=== PATIENT | female | born 1975 | race Caucasian/White ===

== ENCOUNTER 2017-05-18 10:23 | Outpatient (CLI) | payer BC | END 2017-05-18 10:24 | disposition home or self-care (01) | LOC: CTENTCT 10:23 | PROVIDERS: ATTEND Otolaryngology Plastic Surgery within the Head & Neck | DX: J01.91 Acute recurrent sinusitis, unspecified (principal) | CPT/HCPCS: 70486 ==

== ENCOUNTER 2017-08-07 13:53 | Outpatient (CLI) | payer BC | END 2017-08-07 13:54 | disposition home or self-care (01) | LOC: CTENTCT 13:53 | PROVIDERS: ATTEND Otolaryngology Plastic Surgery within the Head & Neck | DX: J32.8 Other chronic sinusitis (principal) | CPT/HCPCS: 70486 ==

== ENCOUNTER 2017-08-16 07:00 | Day surgery (SDC) | payer BC ==
[2017-08-15 12:53] VITALS: BMI 31.6
[2017-08-16] MEDS ORDERED: Oxymetazoline HCl 0.05% ( 15 ML ) ONE ×2 (08:05→09:14)
[2017-08-16 08:06] LABS: Hematocrit 44.4 % (36.0-47.0)
[2017-08-16] MEDS ORDERED: Fentanyl 100 MCG/2 ML VIAL ONE ×2 (08:58→10:09)
[2017-08-16] MEDS ORDERED: Midazolam HCl 2 mg/2 ml Vial ONE (08:58)
[2017-08-16] MEDS ORDERED: Lidocaine 1% w/Epinephrine 1:200K 30 ML VIAL ONE (09:14)
[2017-08-16] MEDS ORDERED: HYDROcodone/Acetaminophen 5/325 mg Tablet ONE (11:26)
[2017-08-16] MEDS ORDERED: Glycopyrrolate 0.2 MG/ML 5 ML SYRINGE ONE (14:35)
[2017-08-16] MEDS ORDERED: Dexamethasone 20 MG/5 ML VIAL ONE (14:35)
[2017-08-16] MEDS ORDERED: Ondansetron HCl/PF 4 MG/2 ML Vial ONE (14:35)
[2017-08-16] MEDS ORDERED: Propofol 200 MG/20 ML VIAL ONE (14:35)
[2017-08-16] MEDS ORDERED: Lidocaine 1% PF 5 ML VIAL ONE (14:35)
--- NOTE | 2017-08-18 09:32 | OP ---
PREOPERATIVE DIAGNOSES: 1. Chronic rhinosinusitis. 2. Nasal obstruction. POSTOPERATIVE DIAGNOSES: 1. Chronic rhinosinusitis. 2. Nasal obstruction. PROCEDURES: 1. Bilateral endoscopic sinus surgery, total ethmoidectomies. 2. Bilateral endoscopic sinus surgery, maxillary antrostomies. 3. Bilateral endoscopic sinus surgery, frontal sinusotomies. SURGEON: Benjamin Jeffery M.D. EBL: 20 mL. COMPLICATIONS: None. ANESTHESIA: GETA. DESCRIPTION OF PROCEDURE: The patient was taken to the operating room and placed on the table. Gene ral endotracheal anesthesia was obtained by the Anesthesia staff. Tube was secured in the left lower lip. The patient was placed in the beach chair position. Afrin pledgets were then placed in the na alessandro cavity. Following this, the patient was prepped and draped for standard nasal procedure. The 0 degree scope was then advanced into the nasal cavity. The middle turbinates were red and inflamed. There were thick montes secretions noted in the uncinate process area, 1% lidocaine with 1:100,000 epin ephrine was injected into the inferior turbinates, middle turbinates and lateral nasal wall. Followi ng this, the uncinate process was anteriorly fractured bilaterally using a ball-ended probe. The unc inate process was then removed using a Blakesley forceps and straight 0 degree microdebrider. Follow ing this, the natural maxillary ostia were gently identified using a ball-ended probe and it was gent ly widened using straight Blakesley forceps and microdebrider. Following the Todd cells were encou ntered in this area which were opened with upbiting Blakesley forceps. Following this, the ethmoidal bulla was identified and was punctured on its medial and inferior aspect bilaterally. This ethmoida l bulla was then opened using the straight microdebrider and was removed. Following this, the grand lamella was identified and was opened into the posterior ethmoidal cells. Working from posterior to anterior, the ethmoidal cells were opened in a mucosal-sparing technique. Following this, a 45 degre e scope along with 40 degree curved microdebrider was used to visualize the frontal sinus recess and the natural frontal sinus ostia. These areas were opened using the curved microdebrider and the 90 d egree Blakesley forceps. This was performed bilaterally. Following this, the nasal cavity was irrig ated. MeroPacks were placed within the middle meatus. The patient tolerated the procedure well.
== END 2017-08-16 11:55 | disposition home or self-care (01) ==
LOC: SDC 07:00
PROVIDERS: ATTEND Otolaryngology Plastic Surgery within the Head & Neck
PROC: 099S8ZZ Drainage of Right Frontal Sinus, Via Natural or Artificial Opening Endoscopic (ICD-10-PCS; principal; 2017-08-16)
PROC: 099T8ZZ Drainage of Left Frontal Sinus, Via Natural or Artificial Opening Endoscopic (ICD-10-PCS; principal; 2017-08-16)
PROC: 099V8ZZ Drainage of Left Ethmoid Sinus, Via Natural or Artificial Opening Endoscopic (ICD-10-PCS; principal; 2017-08-16)
PROC: 099U8ZZ Drainage of Right Ethmoid Sinus, Via Natural or Artificial Opening Endoscopic (ICD-10-PCS; principal; 2017-08-16)
PROC: 099Q8ZZ Drainage of Right Maxillary Sinus, Via Natural or Artificial Opening Endoscopic (ICD-10-PCS; principal; 2017-08-16)
PROC: 099R8ZZ Drainage of Left Maxillary Sinus, Via Natural or Artificial Opening Endoscopic (ICD-10-PCS; principal; 2017-08-16)
DX: J32.9 Chronic sinusitis, unspecified (principal); J34.3 Hypertrophy of nasal turbinates; J34.89 Other specified disorders of nose and nasal sinuses; R51 Headache; Z79.899 Other long term (current) drug therapy; Z90.49 Acquired absence of other specified parts of digestive tract
CPT/HCPCS: 84703; 85014; 96374; J1100; J2001; J2250; J2405; J2704; J3010

== ENCOUNTER 2017-12-18 09:17 | Outpatient (CLI) | payer BC | END 2017-12-18 09:18 | disposition home or self-care (01) | LOC: BICMAMMO 09:17 | PROVIDERS: ATTEND Obstetrics & Gynecology | DX: Z12.31 Encounter for screening mammogram for malignant neoplasm of breast (principal) | CPT/HCPCS: 77063; 77067 ==

== ENCOUNTER 2018-01-10 10:27 | Outpatient (CLI) | payer BC | END 2018-01-10 10:28 | disposition home or self-care (01) | LOC: BICMRI 10:27 | PROVIDERS: ATTEND Otolaryngology Plastic Surgery within the Head & Neck | DX: G44.209 Tension-type headache, unspecified, not intractable (principal); J32.9 Chronic sinusitis, unspecified; G93.0 Cerebral cysts; R93.7 Abnormal findings on diagnostic imaging of other parts of musculoskeletal system | CPT/HCPCS: 70553 ==

== ENCOUNTER 2018-08-02 12:15 | Outpatient (CLI) | payer BC ==
--- NOTE | 2018-08-02 14:35 | ULT ---
SOFT TISSUE ULTRASOUND OF THE BILATERAL NECK: History: Throat tightness. Technique: Multiplanar grayscale and color doppler images were obtained in a soft tissue ultrasound o f the neck. FINDINGS: The thyroid is homogeneous in appearance without focal abnormality. No enlarged lymph nodes are seen in the neck. No soft tissue mass or fluid collection is seen in the neck. IMPRESSION: Unremarkable soft tissue neck ultrasound. POS: [facility]
== END 2018-08-02 12:16 | disposition home or self-care (01) ==
LOC: BICULT 12:15
PROVIDERS: ATTEND Internal Medicine Gastroenterology
DX: K21.9 Gastro-esophageal reflux disease without esophagitis (principal); R29.91 Unspecified symptoms and signs involving the musculoskeletal system; R09.89 Other specified symptoms and signs involving the circulatory and respiratory systems
CPT/HCPCS: 76536

== ENCOUNTER 2021-12-06 10:50 | Outpatient (CLI) | payer BC | END 2021-12-06 10:51 | disposition home or self-care (01) | LOC: BICMAMMO 10:50 | PROVIDERS: ATTEND Obstetrics & Gynecology | DX: Z12.31 Encounter for screening mammogram for malignant neoplasm of breast (principal) | CPT/HCPCS: 77063; 77067 ==

== ENCOUNTER 2023-02-21 11:27 | Outpatient (CLI) | payer BC | END 2023-02-21 11:28 | disposition home or self-care (01) | LOC: BICMAMMO 11:27 | PROVIDERS: ATTEND Family Medicine Sports Medicine | DX: Z12.31 Encounter for screening mammogram for malignant neoplasm of breast (principal) | CPT/HCPCS: 77063; 77067 ==